=== PATIENT | male | born 1950 ===

== ENCOUNTER 2018-08-09 07:46 | Outpatient (CLI) | payer OTHER | END 2018-08-09 15:00 | disposition home or self-care (01) | LOC: LAB 07:46 | DX: M54.12 Radiculopathy, cervical region (principal); Z51.81 Encounter for therapeutic drug level monitoring ==

== ENCOUNTER 2018-08-09 08:25 | Outpatient (CLI) | payer OTHER | END 2018-08-09 17:00 | disposition home or self-care (01) | LOC: MRI 08:25 | DX: G50.0 Trigeminal neuralgia (principal) | CPT/HCPCS: 70552; 72127; A9575; Q9965 ==

== ENCOUNTER 2018-08-10 10:40 | Outpatient (CLI) | payer OTHER | END 2018-08-10 10:42 | disposition home or self-care (01) | LOC: SONOGRAMA 10:40 | DX: E03.8 Other specified hypothyroidism (principal) ==

== ENCOUNTER 2018-08-31 07:45 | Outpatient (CLI) | payer OTHER | END 2018-08-31 17:00 | disposition home or self-care (01) | LOC: TOM 07:45 | DX: C73 Malignant neoplasm of thyroid gland (principal) | CPT/HCPCS: 70491; Q9965 ==